=== PATIENT | male | born 1965 | race Caucasian/White ===

== ENCOUNTER 2018-07-05 08:51 | Emergency (ER) | payer OTHER ==
[2018-07-05 08:56] VITALS: RESP 18; TEMP 97.7
[2018-07-05 09:05] LABS: Glucose,Whole Blood 263 mg/dL (75-99)
[2018-07-05] MEDS ORDERED: SODIUM CHLORIDE 0.9% 500 ML IV STA (09:11)
--- NOTE | 2018-07-05 09:17 | ED ---
General Adult HPI - General Chief complaint: Dizziness Stated complaint: Light headed/Weakness Time Seen by Provider: 07/05/18 08:57 Source: patient, RN notes reviewed, old records reviewed Mode of arrival: ambulatory Limitations: no limitations - History of Present Illness Initial comments: 53-year-old male history of hypertension and diabetes presents for evaluation of lightheadedness . Patient denies any vertigo symptoms. Denies focal numbness or weakness. Denies vision changes. Denies headache. Denies chest pain, however states he has had some indigestion for the past one week. He also reports some mild dyspnea. No cough. No fever. No abdominal pain. No dysuria, he does he has been urinating more lately. Patient states that the symptoms have been present for the past 4 hours. He felt that it may be related to low blood sugar, ate some pudding and crackers, this did not improve his symptoms. He is presenting to the emergency department for evaluation. - Related Data Home Medications Medication Instructions Recorded Confirmed Atorvastatin [Lipitor] 20 mg PO HS 07/05/18 07/05/18 Dapagliflozin Propanediol [Farxiga] 5 mg PO HS 07/05/18 07/05/18 Ibuprofen [Motrin Ib] 800 - 1,600 mg PO BID@0800,1600 07/05/18 07/05/18 Lisinopril [Zestril] 20 mg PO HS 07/05/18 07/05/18 Melatonin 10 mg PO HS 07/05/18 07/05/18 Naproxen Sodium [Aleve] 220 mg PO HS 07/05/18 07/05/18 Terazosin [Hytrin] 5 mg PO HS 07/05/18 07/05/18 amLODIPine [Norvasc] 5 mg PO HS 07/05/18 07/05/18 glipiZIDE [Glucotrol] 10 mg PO AC-BID 07/05/18 07/05/18 metFORMIN HCL [Glucophage] 1,000 mg PO BID 07/05/18 07/05/18 Allergies Allergy/AdvReac Type Severity Reaction Status Date / Time No Known Allergies Allergy Verified 07/05/18 09:44 Review of Systems ROS Statement: Those systems with pertinent positive or pertinent negative responses have been documented in the HPI. ROS Other: All systems not noted in ROS Statement are negative. Past Medical History Past Medical History: Diabetes Mellitus, Hyperlipidemia, Hypertension History of Any Multi-Drug Resistant Organisms: None Reported Past Surgical History: No Surgical Hx Reported Past Psychological History: No Psychological Hx Reported Smoking Status: Never smoker Past Alcohol Use History: Rare Past Drug Use History: None Reported General Exam Limitations: no limitations General appearance: alert, in no apparent distress Head exam: Present: atraumatic, normocephalic Eye exam: Present: normal appearance, PERRL, EOMI. Absent: nystagmus ENT exam: Present: mucous membranes dry Neck exam: Present: normal inspection. Absent: tenderness, meningismus Respiratory exam: Present: normal lung sounds bilaterally. Absent: respiratory distress, wheezes, rales Cardiovascular Exam: Present: regular rate, normal rhythm GI/Abdominal exam: Present: soft. Absent: distended, tenderness, guarding Extremities exam: Present: normal inspection, normal capillary refill. Absent: pedal edema Neurological exam: Present: alert, oriented X3, CN II-XII intact. Absent: motor sensory deficit Psychiatric exam: Present: normal affect, normal mood Skin exam: Present: warm, dry, intact. Absent: cyanosis, diaphoretic Course Vital Signs 07/05/18 08:54 Temperature 97.7 F Pulse Rate 104 H Respiratory 18 Rate Blood Pressure 145/82 O2 Sat by Pulse 98 Oximetry EKG Findings - EKG Comments: EKG Findings:: EKG: Normal sinus rhythm, rate of 100, CT interval 166, QRS duration 96, QTC 448, no ST segment elevation or depression T waves Medical Decision Making - Medical Decision Making 53-year-old male presenting with lightheadedness. Clinically patient does appear dehydrated, dry mucous membranes, initial heart rate is 100. Symptoms are nonspecific, he does receive a workup in the emergency department including chest pain workup given his 1 week of indigestion and reflux. EKG is nonischemic, CBC within normal limits, d-dimer and troponin are negative. CMP does reveal hyperglycemia. Patient is on 2 antidiabetic medications and a third agent has been added in the past week. After IV hydration he is feeling better. He is asymptomatic on reevaluation. Likely symptoms are related to some dehydration secondary to polyuria. Patient is comfortable with outpatient follow-up. He is instructed on both diet and exercise. He will maintain oral hydration at home. Please return with worsening or changing symptoms. - Lab Data Result diagrams: 07/05/18 09:20 07/05/18 09:20 Lab Results 07/05/18 07/05/18 07/05/18 Range/Units 09:01 09:20 09:20 WBC 6.4 (3.8-10.6) k/uL RBC 4.76 (4.30-5.90) m/uL Hgb 13.8 (13.0-17.5) gm/dL Hct 41.3 (39.0-53.0) % MCV 86.7 (80.0-100.0) fL MCH 29.0 (25.0-35.0) pg MCHC 33.4 (31.0-37.0) g/dL RDW 13.2 (11.5-15.5) % Plt Count 196 (150-450) k/uL Neutrophils % 67 % Lymphocytes % 26 % Monocytes % 4 % Eosinophils % 2 % Basophils % 0 % Neutrophils # 4.3 (1.3-7.7) k/uL Lymphocytes # 1.7 (1.0-4.8) k/uL Monocytes # 0.3 (0-1.0) k/uL Eosinophils # 0.1 (0-0.7) k/uL Basophils # 0.0 (0-0.2) k/uL PT (9.0-12.0) sec INR (<1.2) APTT (22.0-30.0) sec D-Dimer (<0.60) mg/L FEU Sodium (137-145) mmol/L Potassium (3.5-5.1) mmol/L Chloride (98-107) mmol/L Carbon Dioxide (22-30) mmol/L Anion Gap mmol/L BUN (9-20) mg/dL Creatinine (0.66-1.25) mg/dL Est GFR (CKD-EPI)AfAm (>60 ml/min/1.73 sqM) Est GFR (CKD-EPI)NonAf (>60 ml/min/1.73 sqM) Glucose (74-99) mg/dL POC Glucose (mg/dL) 263 H (75-99) mg/dL POC Glu Supervisor Delivery Department ID Petitpren, Gwendolyn Calcium (8.4-10.2) mg/dL Magnesium (1.6-2.3) mg/dL Total Bilirubin (0.2-1.3) mg/dL AST (17-59) U/L ALT (21-72) U/L Alkaline Phosphatase (38-126) U/L Total Creatine Kinase 80 (55-170) U/L CK-MB (CK-2) 0.8 (0.0-2.4) ng/mL CK-MB (CK-2) Rel Index 1.0 Troponin I <0.012 (0.000-0.034) ng/mL NT-Pro-B Natriuret Pep pg/mL Total Protein (6.3-8.2) g/dL Albumin (3.5-5.0) g/dL Lipase (23-300) U/L 07/05/18 07/05/18 07/05/18 Range/Units 09:20 09:20 09:20 WBC (3.8-10.6) k/uL RBC (4.30-5.90) m/uL Hgb (13.0-17.5) gm/dL Hct (39.0-53.0) % MCV (80.0-100.0) fL MCH (25.0-35.0) pg MCHC (31.0-37.0) g/dL RDW (11.5-15.5) % Plt Count (150-450) k/uL Neutrophils % % Lymphocytes % % Monocytes % % Eosinophils % % Basophils % % Neutrophils # (1.3-7.7) k/uL Lymphocytes # (1.0-4.8) k/uL Monocytes # (0-1.0) k/uL Eosinophils # (0-0.7) k/uL Basophils # (0-0.2) k/uL PT 10.2 (9.0-12.0) sec INR 1.0 (<1.2) APTT 23.7 (22.0-30.0) sec D-Dimer 0.22 (<0.60) mg/L FEU Sodium 137 (137-145) mmol/L Potassium 4.5 (3.5-5.1) mmol/L Chloride 104 (98-107) mmol/L Carbon Dioxide 19 L (22-30) mmol/L Anion Gap 14 mmol/L BUN 14 (9-20) mg/dL Creatinine 0.75 (0.66-1.25) mg/dL Est GFR (CKD-EPI)AfAm >90 (>60 ml/min/1.73 sqM) Est GFR (CKD-EPI)NonAf >90 (>60 ml/min/1.73 sqM) Glucose 243 H (74-99) mg/dL POC Glucose (mg/dL) (75-99) mg/dL POC Glu Supervisor Delivery Department ID Calcium 9.5 (8.4-10.2) mg/dL Magnesium 1.7 (1.6-2.3) mg/dL Total Bilirubin 0.9 (0.2-1.3) mg/dL AST 22 (17-59) U/L ALT 30 (21-72) U/L Alkaline Phosphatase 31 L (38-126) U/L Total Creatine Kinase (55-170) U/L CK-MB (CK-2) (0.0-2.4) ng/mL CK-MB (CK-2) Rel Index Troponin I (0.000-0.034) ng/mL NT-Pro-B Natriuret Pep 14 pg/mL Total Protein 6.7 (6.3-8.2) g/dL Albumin 4.4 (3.5-5.0) g/dL Lipase 130 (23-300) U/L Disposition Clinical Impression: Dehydration Disposition: HOME SELF-CARE Condition: Good Instructions: Dizziness (ED), Dehydration (ED) Is patient prescribed a controlled substance at d/c from ED?: No Referrals: Winston Turk MD [Primary Care Provider] - 1-2 days Time of Disposition: 10:56
[2018-07-05 09:50] LABS: Basophils % (A) 0 %; Eosinophils # (A) 0.1 k/uL (0-0.7); Eosinophils % (A) 2 %; HCT 41.3 % (39.0-53.0); HGB 13.8 gm/dL (13.0-17.5); Lymphocytes # (A) 1.7 k/uL (1.0-4.8); Lymphocytes % (A) 26 %; MCHC 33.4 g/dL (31.0-37.0); MCV 86.7 fL (80.0-100.0); Mean Platelet Volume 6.1; Monocytes # (A) 0.3 k/uL (0-1.0); Monocytes % (A) 4 %; Neutrophils # (A) 4.3 k/uL (1.3-7.7); Neutrophils % (A) 67 %; Platelet Count 196 k/uL (150-450); RBC 4.76 m/uL (4.30-5.90); RDW 13.2 % (11.5-15.5); WBC 6.4 k/uL (3.8-10.6)
--- NOTE | 2018-07-05 09:58 | XR ---
EXAMINATION TYPE: XR chest 2V DATE OF EXAM: 07/05/2018 COMPARISON: 07/05/2018 HISTORY: Shortness of breath TECHNIQUE: Frontal and lateral views of the chest are obtained. FINDINGS: Scattered senescent parenchymal changes noted. No evidence for infiltrate. No evidence for atelectasis. Heart size is stable. Mediastinal structures are stable and grossly unremarkable. No evidence for hilar prominence. Degenerative changes dorsal spine. IMPRESSION: 1. No evidence for acute pulmonary disease.
[2018-07-05 10:03] LABS: ALT 30 U/L (21-72); AST 22 U/L (17-59); Albumin 4.4 g/dL (3.5-5.0); Alkaline Phosphatase 31 U/L (38-126); Anion Gap 14 mmol/L; Blood Urea Nitrogen 14 mg/dL (9-20); Calcium 9.5 mg/dL (8.4-10.2); Carbon Dioxide 19 mmol/L (22-30); Chloride 104 mmol/L (98-107); Glucose 243 mg/dL (74-99); Lipase 130 U/L (23-300); Magnesium 1.7 mg/dL (1.6-2.3); Potassium 4.5 mmol/L (3.5-5.1); Sodium 137 mmol/L (137-145); Total Bilirubin 0.9 mg/dL (0.2-1.3); Total Protein 6.7 g/dL (6.3-8.2)
[2018-07-05 10:06] LABS: D-Dimer 0.22 mg/L FEU (<0.60); Partial Thromboplastin Time 23.7 sec (22.0-30.0); Prothrombin Time 10.2 sec (9.0-12.0)
[2018-07-05 10:22] LABS: Creatine Kinase 80 U/L (55-170)
[2018-07-05 10:36] LABS: Creatine Kinase MB 0.8 ng/mL (0.0-2.4); Troponin I <0.012 ng/mL (0.000-0.034)
[2018-07-05 11:50] VITALS: BP 121/57; PULSE 84
== END 2018-07-05 11:49 | disposition home or self-care (01) ==
LOC: EC 08:51
DX: E86.0 Dehydration (principal); R42 Dizziness and giddiness; E11.65 Type 2 diabetes mellitus with hyperglycemia; E78.5 Hyperlipidemia, unspecified; I10 Essential (primary) hypertension; Z79.84 Long term (current) use of oral hypoglycemic drugs; Z79.899 Other long term (current) drug therapy
CPT/HCPCS: 36415; 71046; 80053; 82550; 82553; 83690; 83735; 83880; 84484; 85025; 85379; 85610; 85730; 93005; 96360; 99285

== ENCOUNTER → 2021-04-06 | Outpatient (CLI) | payer BC ==
--- NOTE | 2021-04-06 17:36 | CONS ---
CONSULTATION DATE OF SERVICE: 04/06/2021 55-year-old gentleman has been evaluated in [facility] for obstructive sleep apnea- hypopnea syndrome. HISTORY OF PRESENT ILLNESS/SLEEP WAKE EVALUATION: The patient has history of obstructive sleep apnea in the past. The last sleep study according to him was done about 5 years ago. He was recommended to use CPAP but was not able to use CPAP equipment because the regimen CPAP according to patient was not correctly adjusted and then he lost his CPAP. SLEEP SCHEDULE: Presently, his sleep schedule from 9 or 10 p.m. to 4:20 am on weekdays and from midnight until 7 or 9:00 am on weekends. FALLING ASLEEP: Sometimes she has problems with falling asleep. Has TV set in bedroom in sleep. DURING SLEEP: He sleeps on the side position or in the chair. He wakes up from sleep up to 5 times with nocturia. He has loud snoring and witnessed episodes of stopped breathing during sleep, episodes of choking and gasping for air, heartburn, sweating. DURING THE DAY/SLEEP WAKE EVALUATION: During the day, patient feels sleepiness. [employer] Sleepiness Scale significantly increased to 15. He takes 4 naps during the working days and up to 6 naps on weekends. He increased his weight about 40 pounds since 5 years ago. No history of hypnagogic hallucinations, sleep paralysis or cataplexy. PAST MEDICAL HISTORY: Positive for hypertension, diabetes mellitus, hyperlipidemia, knee problems. PAST SURGICAL HISTORY: None. MEDICATIONS: Ibuprofen 800 mg on p.r.n. basis, metformin 500 mg 2 tablets twice a day, lisinopril 20 mg once a day, amlodipine 5 mg once a day. Terazosin 5 mg once a day, glipizide 10 mg twice a day, atorvastatin 20 mg once a day, Pioglitazone 30 mg once a day. SOCIAL HISTORY: Negative for smoking. Alcohol consumption occasional. REVIEW OF SYSTEMS: Multiple awakenings from sleep, significant excessive daytime sleepiness. PHYSICAL EXAMINATION: GENERAL: gentleman without distress. BP 145/87, HR 101, RR 18, height 5 feet 9 inches, weight 349.2, temperature 97.2, oxygen saturation at room air 95%, body mass index 51.5. HEENT: PERRLA, EOMI. Oropharynx extremely low position of soft palate. Mallampati IV. NECK: Supple. No JVD. Neck is extremely wide 20 and three quarter inches in circumference. LUNGS: Clear to percussion and to auscultation. Good air exchange. No wheezing or rhonchi. HEART: S1, S2 regular. No murmurs, gallops, or rubs. ABDOMEN: Obese. Soft and nontender. Bowel sounds are present. No organomegaly appreciated. EXTREMITIES: No clubbing or cyanosis. BOBBIN DUMPER: Awake, alert, and oriented X3. Cranial nerves 2 to 7 intact. There is no fasciculation or atrophy. noted. No focal deficits observed. IMPRESSION: 1. Loud snoring, witnessed episodes of stopped breathing during sleep, history of obstructive sleep apnea in the past, low position of soft palate, Mallampati 4, extremely wide neck 20-3/4 inches in circumference, sleepiness by [employer] Sleepiness Scale of 15, obstructive sleep apnea-hypopnea syndrome, possibly in severe range. 2. Morbid obesity, body mass index 51.5. 3. Hypertension. 4. Diabetes mellitus. 5. Hyperlipidemia. 6. Knee problems. PLAN: 1. Home sleep apnea test to confirm obstructive sleep apnea-hypopnea syndrome. 2. CPAP with necessary BiPAP titration for correction of the patient's respiratory abnormalities during sleep. 3. Preferable position during sleep on the side. 4. Losing weight. 5. No driving if feeling sleepiness. 6. Sleep hygiene with regular time in bed for at least 8 hours. 7. I will see patient for follow up visit to explain results of testing and following plan. Thank you very much for referring this patient for consultation. Sincerely, Torsten Grant MD, PhD, FAASM Diplomat of [employer] [facility] [place] MMODL / IJN: [id number] /
== END ==
LOC: SLEEP 15:34
PROVIDERS: ATTEND Internal Medicine
DX: G47.33 Obstructive sleep apnea (adult) (pediatric) (principal); E11.9 Type 2 diabetes mellitus without complications; E66.01 Morbid (severe) obesity due to excess calories; E78.5 Hyperlipidemia, unspecified; I10 Essential (primary) hypertension; Z68.43 Body mass index [BMI] 50.0-59.9, adult; M25.869 Other specified joint disorders, unspecified knee; Z79.84 Long term (current) use of oral hypoglycemic drugs; Z79.899 Other long term (current) drug therapy; Z99.81 Dependence on supplemental oxygen
CPT/HCPCS: 99211

== ENCOUNTER → 2024-03-01 | Outpatient (CLI) | payer BC ==
--- NOTE | 2024-03-01 10:26 | XR ---
EXAMINATION TYPE: XR pelvis AP view DATE OF EXAM: 03/01/2024 COMPARISON: None HISTORY: pain in lower extremities TECHNIQUE: AP pelvis FINDINGS: Sacroiliac joints and symphysis pubis are normal. Femoral heads articular with the acetabul um. Joint spaces are preserved. Normal bowel gas is present. IMPRESSION: 1. No acute osseous abnormality AP pelvis
--- NOTE | 2024-03-01 10:29 | XR ---
EXAMINATION TYPE: XR lumbar spine 2 or 3V DATE OF EXAM: 03/01/2024 COMPARISON: None HISTORY: Low back pain and extremity pain TECHNIQUE: 3 view lumbar spine FINDINGS: There are 5 lumbar-type vertebral bodies. Pedicles are intact. There is loss of disc height with vacuum disc phenomenon at L4-5 L5-S1. Remaining disc heights are preserved. Vertebral body heig hts are preserved. IMPRESSION: 1. Degenerative disc changes L4-5 and L5-S1.
== END | disposition home or self-care (01) ==
LOC: RADXRWHC 09:53
PROVIDERS: ATTEND Chiropractor
DX: M51.17 Intervertebral disc disorders with radiculopathy, lumbosacral region (principal); M79.605 Pain in left leg; M79.604 Pain in right leg
CPT/HCPCS: 72100; 72170